=== PATIENT | female | born 1985 | race Caucasian/White ===

== ENCOUNTER 2018-06-18 19:10 | Emergency (ER) | payer OTHER ==
[~2018-06-18] VITALS: Ht 167.6 cm; Wt 77.1 kg
[2018-06-18] MEDS ORDERED: TULANA0.35 MG (19:21)
[2018-06-18] MEDS ORDERED: KEFLEX500 M1 PO (20:05)
[2018-06-18 20:16] VITALS: BP 138/80
== END 2018-06-18 20:17 | disposition home or self-care (01) ==
LOC: M.ERS 19:10
DX: S61.432A Puncture wound without foreign body of left hand, initial encounter (principal); S61.431A Puncture wound without foreign body of right hand, initial encounter; W10.8XXA Fall (on) (from) other stairs and steps, initial encounter; Y92.89 Other specified places as the place of occurrence of the external cause; Y93.89 Activity, other specified; Y99.8 Other external cause status